=== PATIENT | male | born 1945 | race Caucasian/White ===

== ENCOUNTER 2019-12-03 04:47 | Emergency (ER) | payer MEDICARE ==
[~2019-12-03] VITALS: Ht 182.9 cm; Wt 74.4 kg
--- NOTE | ~2019-12-03 | EMS ---
[address] [address] EMS Patient Care Report Name: VIJAYA WOLF Room: [facility]#: [id number] Admission: 12/03/19 Attend Phys: Discharge: Date of : 45 Report #: [id number] THIS REPORT FOR: //name// Report Transmitted: 12/03/2019 05:18 EMS Care Summary SHAGUFTA Hernan JERMAINE Incident [id number] @ 12/03/2019 04:12 Incident Location [address] [facility] [place] [address] Patient vijaya Wolf Male, 74 Years 1945 Patient Address [address] [place] [address] Patient History Cellulitis, unspecified,Hypokalemia,Unspecified dementia,Hypertension (HTN),Chronic Kidney Disease, Patient Allergies No known allergies, Patient Medications Lorazepam, atorvastatin, Carbidopa, gabapentin, Lorazepam, Chief Complaint Unknown Disposition Transported No Lights/[place] Reason Psychiatric Problem/Abnormal Behavior/Suicide Attempt Transported To [facility] Narrative Medic 320 was dispatched for a 911 call for a psych. Medic 320 arrived on scene to find a male subject sitting in a wheelchair waiting for the crew to arrive. The long-term nurse stated that the patient was being combative all day. [facility] [address] [place] [address] EMS Patient Care Report Name: VIJAYA WOLF Room: [facility]#: [id number] Admission: 12/03/19 Attend Phys: Discharge: Date of : 45 Report #: [id number] nurse stated that she gave him three doses of ativan during the day. At around 4 in the morning the nurse gave the patient a dose of haldol. the patient was screaming for help and has a history of dementia. Medic 322 started an assessment on the patient. Medic 320 transferred the patient to the [facility] using the stand and pivot maneuver, and securred him using all the straps provided. The patient was transferred to the [facility] without difficulty. Medic 320 transported the patient to the ambulance using the litter. Once in the back of the ambulance Medic 320 continued her assessment on the patient. Rasheeda gaytan took a set of vitals on the patient about every ten to fifteen minutes. The patient rested on the litter during the transport. He wanted to be transported to [facility]. Medic 320 arrived at [facility] and transported the patient to his room using the litter. The patient was transferred to the hospital bed using the sheet slide maneuver. Medic 320 gave a verbal report to the nurse, and transferred patient care for the nurse. HIPAA was signed by the nurse. Rasheeda Gaytan EMT-P #[id number] Initial Vitals @04:43P: 83,R: 18,BP: 126/87, @04:33P: 83,R: 18,BP: 130/82, @04:43GCS: 14, @04:33GCS: 14, Assessments @04:19MENTAL:SKIN:HEENT:LUNG SOUNDS:ABDOMEN:PELVIS//GI:EXTREMITIES:PULSE:NEURO: Impression Mental disorder Timeline 04:11,Call Received 04:11,Dispatch Notified 04:11,Psap Call 04:12,Dispatched 04:12,En Route 04:17,On Scene 04:19,At Patient 04:29,Depart Scene 04:33,BP: 130/82 M,PULSE: 83,RR: 18 R,SPO2: Ox,ETCO2: ,BG: ,PAIN: ,GCS: , 04:33,BP: / M,PULSE: ,RR: R,SPO2: Ox,ETCO2: ,BG: ,PAIN: ,GCS: 14, 04:43,BP: 126/87 M,PULSE: 83,RR: 18 R,SPO2: Ox,ETCO2: ,BG: ,PAIN: ,GCS: , 04:43,BP: / M,PULSE: ,RR: R,SPO2: Ox,ETCO2: ,BG: ,PAIN: ,GCS: 14, 04:44,At Destination 04:58,[place] [address] EMS Patient Care Report Name: VIJAYA WOLF [id number] Admission: 12/03/19 Attend Phys: Discharge: Date of : 45 Report #: [id number] Disclaimer [email or web address] Copyright 2020 [employer] This EMS Care Summary contains data elements from the applicable legal record (which may be displayed differently). It is designed to provide pertinent information for the following purposes: continuity of care, clinical quality, and state data reporting. The complete legal record is available to ED staff and administrators of the receiving hospital in [employer] Patient Tracker. All data is provided "as is."
[2019-12-03] MEDS ORDERED: LIPITOR40 MG PO (05:03)
[2019-12-03] MEDS ORDERED: LORAZEPAM 22 MG/1 ML IM (05:03)
[2019-12-03] MEDS ORDERED: CARVEDILOL12.5 MG PO (05:04)
[2019-12-03] MEDS ORDERED: CARBIDOPA-LEVO1 EAC1 PO (05:04)
[2019-12-03] MEDS ORDERED: NEURONTIN 300M300 M2 PO (05:05)
[2019-12-03] MEDS ORDERED: LORAZEPAM 0.50.5 MG PO (05:06)
[2019-12-03] MEDS ORDERED: NORVASC 2.5 MG2.5 M1 PO (05:07)
[2019-12-03] MEDS ORDERED: MIRALAX119 GM PO (05:07)
[2019-12-03] MEDS ORDERED: SEROQUEL300 MG PO (05:08)
[2019-12-03 05:26] LABS: ABSOLUTE EOSINOPHILS 0.3 thou/uL (0.0-0.7); ABSOLUTE LYMPHOCYTES 1.1 thou/uL (0.8-5.3); ABSOLUTE MONOCYTES 0.6 thou/uL (0.0-1.2); ABSOLUTE NEUTROPHILS 5.3 thou/uL (1.6-8.1); BASOPHILS 0.5 %; EOSINOPHILS 4.7 %; HEMATOCRIT 32.6 % (42.0-52.0); HEMOGLOBIN 10.9 gm/dL (14.0-18.0); LYMPHOCYTES 14.4 %; MCH 30.9 pg (26.0-34.0); MCHC 33.4 g/dL (28.0-37.0); MCV 92.5 fL (80.0-100.0); MONOCYTES 8.2 %; MPV 9.5 fl. (7.2-11.1); NUCLEATED RBCS 0 /100WBC; PLATELET COUNT* 161 thou/uL (150-400); POLYS 72.2 %; RBC 3.52 mil/uL (4.50-6.00); WBC 7.3 thou/uL (4.0-11.0)
[2019-12-03 05:39] LABS: CALCIUM 8.3 mg/dL (8.5-10.1); CREATININE 1.5 mg/dL (0.6-1.3); POTASSIUM 4.1 mmol/L (3.5-5.1)
[2019-12-03 05:40] LABS: APTT 29.2 Seconds (25.0-31.3); INR 1.2
[2019-12-03 05:45] LABS: URINE BILIRUBIN NEGATIVE (Negative); URINE BLOOD NEGATIVE (Negative); URINE CLARITY CLEAR; URINE COLOR YELLOW; URINE GLUCOSE-RANDOM NEGATIVE (Negative); URINE KETONES NEGATIVE (Negative); URINE LEUKOCYTES-REFLEX NEGATIVE (Negative); URINE NITRITE-REFLEX NEGATIVE (Negative); URINE PROTEIN NEGATIVE (Negative)
[2019-12-03 05:50] LABS: ALBUMIN 2.7 g/dL (3.4-5.0); TOTAL BILIRUBIN 0.4 mg/dL (<0.1-1.0); TOTAL PROTEIN 6.1 g/dL (6.4-8.2)
[2019-12-03 07:09] VITALS: BP 129/74
--- NOTE | 2019-12-03 09:45 | EKG ---
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
== END 2019-12-03 07:09 ==
LOC: M.ERS 04:47
PROVIDERS: Family Medicine
DX: F03.91 Unspecified dementia, unspecified severity, with behavioral disturbance (principal); R79.1 Abnormal coagulation profile; F31.9 Bipolar disorder, unspecified; F20.9 Schizophrenia, unspecified; Z79.899 Other long term (current) drug therapy